=== PATIENT | female | born 1930 | race Caucasian/White ===

== ENCOUNTER 2018-04-19 16:29 | Inpatient (IN) ==
[2018-04-19] MEDS ORDERED: 0.9 % Sodium Chloride 1,000 ML IVC ONE (16:35)
[2018-04-19] MEDS ORDERED: Isovue-370 500 ML INFUS..BTL IV ONE (16:38)
[2018-04-19 17:02] LABS: Hematocrit 37.6 % (35.3-44.9); Hemoglobin 12.2 g/dL (11.5-15.4); Mean Corpuscular HGB Conc 32.4 g/dL (31.6-35.5); Mean Corpuscular Hemoglobin 29.6 pg (28.0-33.3); Mean Corpuscular Volume 91.3 fL (83.0-100.0); Mean Platelet Volume 10.3 fL (9.4-12.4); Platelet Count 142 K/mcL (140-400); Red Blood Count 4.12 M/mcL (3.82-4.97); Red Cell Distribution Width 14.5 % (11.5-14.5)
[2018-04-19 17:09] LABS: INR 1.1; Prothrombin Time 12.8 Seconds (9.4-12.1)
[2018-04-19 17:11] LABS: Activated Partial Thrombo Time 30.3 Seconds (26.0-36.0)
--- NOTE | 2018-04-19 17:22 | Emergency Department Note ---
Addendum entered and electronically signed by Farnaz Redd DO 04/27/18 20:51: Original Note: Disposition Clinical Impression: Dissection of aorta, thoracic Disposition: Still a Patient Condition: Serious Referrals: Leny Vivar CNP [Primary Care Provider] - Forms: ED Satisfaction Letter General Adult HPI - General Chief complaint: ED Altered Mental Status Time Seen by Provider: 04/19/18 16:35 Source: EMS Limitations: no limitations Nursing Notes Reviewed: Yes Vital Signs Reviewed: Yes - History of Present Illness HPI Narrative: Female patient brought in by EMS for being found unresponsive in the floor. They report that there is an unknown downtime. The daughter does come to bedside and is reporting that the last time she saw her well was yesterday. She did not speak with her this morning however when she got home she her groaning she was gone downstairs on a hard floor. She does have a significant history of being hard of hearing. However the daughter states that her hearing it was in and she was mumbling. She was not responding is normal to the daughter. Patient does not have a history of stroke. She does have a history of a aortic aneurysm. The daughter is unaware of his near her heart or in her abdomen. She does have a history of open-heart surgery. Does have a history of [place]. States that she has been having decreased by mouth intake recently. Patient's glucose was normal for EMS. She was cool to the touch and cyanotic about the face, so she was placed on a nonrebreather. She is cyanotic while coming into the trauma bay. We placed her on the nonrebreather again and started rewarming. We cannot get it initial rectal temperature. Pain Scale: 0 - Related Data Home Medications Medication Instructions Recorded Confirmed Aspirin 05/10/16 Crestor 05/10/16 Furosemide 05/10/16 Levothyroxine Sodium 05/10/16 05/10/16 Metoprolol Tartrate 05/10/16 Oxycodone-Acetaminophn 5-325/5 05/10/16 Plavix 05/10/16 Potassium Chloride 05/10/16 Zostavax 05/10/16 Previous Rx's Medication Instructions Recorded Acetaminophen w/Cod 300-30 mg 1 each PO QID #6 tablet 05/10/16 [Tylenol w/Codeine #3] cephALEXin [Keflex] 500 mg PO TID #30 capsule 05/10/16 Allergies Allergy/AdvReac Type Severity Reaction Status Date / Time No Known Allergies Allergy Verified 05/10/16 16:22 Limitations: ROS unobtainable due to patients medical condition Past Medical History - Past Medical History Source: obtained from family Medical history: Reports: aortic aneurysm, CHF, hyperlipidemia, hypertension, myocardial infarction, thyroid disease, other Psychiatric history: Reports: no psych history MANAGER FLORAL history: Reports: no MANAGER FLORAL history - Social History Smoking Status: Never smoker Smokeless Tobacco Status: No Alcohol use: Reports: none Drug use: Reports: none Physical Exam - General Limitations: no limitations General appearance: obtunded, in distress - Head Head exam: normocephalic, other (Patient cyanotic about the lips. Does have ecchymosis to the left face.) - Eye Eye exam: Present: normal appearance, PERRL, EOMI. Absent: scleral icterus - ENT ENT exam: mucous membranes moist, TM's normal bilaterally - Neck Neck exam: Present: trachea midline. Absent: tenderness, lymphadenopathy - Chest Chest inspection: Present: normal inspection, symmetric chest wall rise, other (Old midline scar.) - Respiratory Respiratory exam: Present: other (Patient cyanotic about the lips. Patient has decreased lung sounds throughout.) - Cardiovascular Cardiovascular exam: Present: regular rate, normal rhythm, normal heart sounds - Abdominal Exam Abdominal exam: Present: soft, Non-Tender. Absent: distention, rigidity, organomegaly - Extremities Exam Extremities exam: Present: other (Patient moving upper extremities.). Absent: pedal edema - Back Exam Back exam: Present: normal inspection - Psychiatric Psychiatric exam: Present: anxious - Skin Skin exam: Present: cyanosis, pallor, other (cool to the touch) Course Course Narrative: Initial presentation in the trauma bay the patient was cyanotic about her face and lips. We did replace the nonrebreather on the patient. This increased her perfusion and she became pink about her face at that time. She is cold to the touch. We cannot get a rectal temperature initially. Pulse ox will not pear picker either due to patient's habitual. Patient initially would not speak however she ended up sitting up and was notable stating her head hurt and her neck her. Pupils were equal and reactive. Lung sounds were diminished however no focal consolidation was noted. Abdomen was soft nonrigid nondistended. I do not appreciate any step-offs or deformity*cervical spine thoracic spine or lumbar spine however there is ecchymosis to her left shoulder and left face. Pupils are equal and reactive. She is moving her upper extremities but I have not noticed moment movement from her lower extremities. Patient does not have a history of stroke however the concern is there we do not know last known well. We will get a CT of patient's head and cervical spine and chest abdomen pelvis. I did speak with the daughter who is unaware if the patient would like to be intubated if necessary she is contacting her sister at this time. Initially there was concern for possible intubation as the patient was not mentating appropriately and was cyanotic however she did begin to sit up and protect her airway better. Patient initially had vomitus about the blanket beside her. - Consultations Consultation #1: Dr Jones accepted Pt. He was made aware that the Pt is now DNR status. Time: 19:34 Vital Signs Temperature 0 F L 04/19/18 16:33 Pulse Rate 74 04/19/18 16:33 Respiratory Rate 18 04/19/18 16:33 Blood Pressure 95/78 04/19/18 16:33 O2 Sat by Pulse Oximetry 95 04/19/18 16:33 Temperature 90.5 F L 04/19/18 17:37 Pulse Rate 66 04/19/18 18:15 Respiratory Rate 16 04/19/18 18:15 Blood Pressure 77/59 04/19/18 18:15 O2 Sat by Pulse Oximetry 93 04/19/18 18:15 Oxygen Delivery Oxygen Delivery Simple Mask Medical Decision Making - Lab Data Result diagrams: 04/19/18 16:45 Lab Results 04/19/18 04/19/18 04/19/18 Range/Units 16:35 16:45 16:45 WBC 13.9 H (4.3-11.1) K/mcL RBC 4.12 (3.82-4.97) M/mcL Hgb 12.2 (11.5-15.4) g/dL Hct 37.6 (35.3-44.9) % MCV 91.3 (83.0-100.0) fL MCH 29.6 (28.0-33.3) pg MCHC 32.4 (31.6-35.5) g/dL RDW 14.5 (11.5-14.5) % Plt Count 142 (140-400) K/mcL MPV 10.3 (9.4-12.4) fL PT 12.8 H (9.4-12.1) Seconds INR 1.1 APTT 30.3 (26.0-36.0) Seconds Sample Site ABG pH (7.32-7.45) pH Units ABG pCO2 (35-45) mmHg ABG pO2 (85-104) mmHg ABG HCO3 (21-27) mEq/L ABG Total CO2 (20-26) mEq/L ABG O2 Saturation (95-98) % ABG Base Excess (-2 to 3) mEq/L Sushant Test O2 Delivery Device Inspired O2 (1-15=lpm [id number]=%) POC Glucose 128 H (70-99) mg/dL Troponin I (< 0.04) ng/mL B-Natriuretic Peptide (Less than 100) pg/mL Specimen Rejected 04/19/18 04/19/18 04/19/18 Range/Units 16:45 16:45 17:29 WBC (4.3-11.1) K/mcL RBC (3.82-4.97) M/mcL Hgb (11.5-15.4) g/dL Hct (35.3-44.9) % MCV (83.0-100.0) fL MCH (28.0-33.3) pg MCHC (31.6-35.5) g/dL RDW (11.5-14.5) % Plt Count (140-400) K/mcL MPV (9.4-12.4) fL PT (9.4-12.1) Seconds INR APTT (26.0-36.0) Seconds Sample Site R Radial ABG pH 7.30 L (7.32-7.45) pH Units ABG pCO2 39 (35-45) mmHg ABG pO2 93 (85-104) mmHg ABG HCO3 19 L (21-27) mEq/L ABG Total CO2 20 (20-26) mEq/L ABG O2 Saturation 96 (95-98) % ABG Base Excess -7 L (-2 to 3) mEq/L Sushant Test Positive O2 Delivery Device Oxy Mask Inspired O2 50.0 (1-15=lpm [id number]=%) POC Glucose (70-99) mg/dL Troponin I 0.11 H* (< 0.04) ng/mL B-Natriuretic Peptide 319 H (Less than 100) pg/mL Specimen Rejected 04/19/18 Range/Units 18:27 WBC (4.3-11.1) K/mcL RBC (3.82-4.97) M/mcL Hgb (11.5-15.4) g/dL Hct (35.3-44.9) % MCV (83.0-100.0) fL MCH (28.0-33.3) pg MCHC (31.6-35.5) g/dL RDW (11.5-14.5) % Plt Count (140-400) K/mcL MPV (9.4-12.4) fL PT (9.4-12.1) Seconds INR APTT (26.0-36.0) Seconds Sample Site ABG pH (7.32-7.45) pH Units ABG pCO2 (35-45) mmHg ABG pO2 (85-104) mmHg ABG HCO3 (21-27) mEq/L ABG Total CO2 (20-26) mEq/L ABG O2 Saturation (95-98) % ABG Base Excess (-2 to 3) mEq/L Sushant Test O2 Delivery Device Inspired O2 (1-15=lpm [id number]=%) POC Glucose (70-99) mg/dL Troponin I (< 0.04) ng/mL B-Natriuretic Peptide (Less than 100) pg/mL Specimen Rejected Miscellaneous
--- NOTE | 2018-04-19 17:45 | Emergency Department Note ---
Disposition Clinical Impression: Dissection of aorta, thoracic Disposition: Still a Patient Condition: Serious Referrals: Leny Vivar CNP [Primary Care Provider] - Forms: ED Satisfaction Letter Altered Mental Status HPI - General Chief Complaint: ED Altered Mental Status Time Seen by Provider: 04/19/18 16:35 Source: EMS Limitations: no limitations - Related Data Home Medications Medication Instructions Recorded Confirmed Aspirin 05/10/16 Crestor 05/10/16 Furosemide 05/10/16 Levothyroxine Sodium 05/10/16 05/10/16 Metoprolol Tartrate 05/10/16 Oxycodone-Acetaminophn 5-325/5 05/10/16 Plavix 05/10/16 Potassium Chloride 05/10/16 Zostavax 05/10/16 Previous Rx's Medication Instructions Recorded Acetaminophen w/Cod 300-30 mg 1 each PO QID #6 tablet 05/10/16 [Tylenol w/Codeine #3] cephALEXin [Keflex] 500 mg PO TID #30 capsule 05/10/16 Allergies Allergy/AdvReac Type Severity Reaction Status Date / Time No Known Allergies Allergy Verified 05/10/16 16:22 Past Medical History - Past Medical History Medical history: Reports: aortic aneurysm, CHF, hyperlipidemia, hypertension, myocardial infarction, thyroid disease, other Psychiatric history: Reports: no psych history RIVER RAT history: Reports: no RIVER RAT history - Social History Smoking Status: Never smoker Smokeless Tobacco Status: No Alcohol use: Reports: none Drug use: Reports: none Physical Exam - General Limitations: no limitations General appearance: alert, in distress Course Vital Signs Temperature 0 F L 04/19/18 16:33 Pulse Rate 74 04/19/18 16:33 Respiratory Rate 18 04/19/18 16:33 Blood Pressure 95/78 04/19/18 16:33 O2 Sat by Pulse Oximetry 95 04/19/18 16:33 Temperature 90.5 F L 04/19/18 17:37 Pulse Rate 66 04/19/18 18:15 Respiratory Rate 16 04/19/18 18:15 Blood Pressure 77/59 04/19/18 18:15 O2 Sat by Pulse Oximetry 93 04/19/18 18:15 Oxygen Delivery Oxygen Delivery Simple Mask Altered Mental Status - Lab Data Result diagrams: 04/19/18 16:45 Lab Results 04/19/18 04/19/18 04/19/18 Range/Units 16:35 16:45 16:45 WBC 13.9 H (4.3-11.1) K/mcL RBC 4.12 (3.82-4.97) M/mcL Hgb 12.2 (11.5-15.4) g/dL Hct 37.6 (35.3-44.9) % MCV 91.3 (83.0-100.0) fL MCH 29.6 (28.0-33.3) pg MCHC 32.4 (31.6-35.5) g/dL RDW 14.5 (11.5-14.5) % Plt Count 142 (140-400) K/mcL MPV 10.3 (9.4-12.4) fL PT 12.8 H (9.4-12.1) Seconds INR 1.1 APTT 30.3 (26.0-36.0) Seconds Sample Site ABG pH (7.32-7.45) pH Units ABG pCO2 (35-45) mmHg ABG pO2 (85-104) mmHg ABG HCO3 (21-27) mEq/L ABG Total CO2 (20-26) mEq/L ABG O2 Saturation (95-98) % ABG Base Excess (-2 to 3) mEq/L Sushant Test O2 Delivery Device Inspired O2 (1-15=lpm [id number]=%) POC Glucose 128 H (70-99) mg/dL Troponin I (< 0.04) ng/mL B-Natriuretic Peptide (Less than 100) pg/mL Specimen Rejected 04/19/18 04/19/18 04/19/18 Range/Units 16:45 16:45 17:29 WBC (4.3-11.1) K/mcL RBC (3.82-4.97) M/mcL Hgb (11.5-15.4) g/dL Hct (35.3-44.9) % MCV (83.0-100.0) fL MCH (28.0-33.3) pg MCHC (31.6-35.5) g/dL RDW (11.5-14.5) % Plt Count (140-400) K/mcL MPV (9.4-12.4) fL PT (9.4-12.1) Seconds INR APTT (26.0-36.0) Seconds Sample Site R Radial ABG pH 7.30 L (7.32-7.45) pH Units ABG pCO2 39 (35-45) mmHg ABG pO2 93 (85-104) mmHg ABG HCO3 19 L (21-27) mEq/L ABG Total CO2 20 (20-26) mEq/L ABG O2 Saturation 96 (95-98) % ABG Base Excess -7 L (-2 to 3) mEq/L Sushant Test Positive O2 Delivery Device Oxy Mask Inspired O2 50.0 (1-15=lpm [id number]=%) POC Glucose (70-99) mg/dL Troponin I 0.11 H* (< 0.04) ng/mL B-Natriuretic Peptide 319 H (Less than 100) pg/mL Specimen Rejected 04/19/18 Range/Units 18:27 WBC (4.3-11.1) K/mcL RBC (3.82-4.97) M/mcL Hgb (11.5-15.4) g/dL Hct (35.3-44.9) % MCV (83.0-100.0) fL MCH (28.0-33.3) pg MCHC (31.6-35.5) g/dL RDW (11.5-14.5) % Plt Count (140-400) K/mcL MPV (9.4-12.4) fL PT (9.4-12.1) Seconds INR APTT (26.0-36.0) Seconds Sample Site ABG pH (7.32-7.45) pH Units ABG pCO2 (35-45) mmHg ABG pO2 (85-104) mmHg ABG HCO3 (21-27) mEq/L ABG Total CO2 (20-26) mEq/L ABG O2 Saturation (95-98) % ABG Base Excess (-2 to 3) mEq/L Sushant Test O2 Delivery Device Inspired O2 (1-15=lpm [id number]=%) POC Glucose (70-99) mg/dL Troponin I (< 0.04) ng/mL B-Natriuretic Peptide (Less than 100) pg/mL Specimen Rejected Miscellaneous TPA Checklist - LKW: 3-4.5 hrs Add. Warnings/Precautions Patient/family understanding: The patient/family members have been counseled and understood the risk, benefit, and alternatives of treatment. Attestation Statement - Attestation Attestation: Resident Attestation: I examined this patient and my medical decision making was reviewed with the Resident Physician. I agree with the documented findings, disposition and treatment plan as described except to the extent set forth below. We independently had [id number] contact with the patient. Please see resident note for further details and disposition. Patient brought in today by EMS with decreased responsiveness. She was found by her family on the floor. She was with family in the basement. As known well was last night. The patient had concerns for hypoxia with blue discoloration to the face. She was placed on a nonrebreather with clinical improvement. Pulse ox was hard to obtain. She has dried vomitus to the bowels concern for coffee-ground emesis. Patient is able to state her name but no other significant medication. On exam the patient is regular rate and rhythm with lungs clear to auscultation bilaterally and abdomen is soft nontender to palpation with no significant evidence of trauma. Workup initiated including emergent CT of the head and cervical spine. CTA of the chest abdomen and pelvis has been ordered secondary to a history of unknown aneurysm. Patient is core temperature was found to be 90 degrees. The patient was placed on an air hunger and sent to CAT scan. Upon return the patient's symptoms have improved. Her mental status has significantly improved. The CAT scans were read by radiology and the results were relayed. Patient has a remote infarct not likely contributing to current symptoms. She does have an ascending aortic dissection. The patient's family is at bedside and states that they know she does not want any open heart surgery. I did place a call to [facility] and talked with cardiothoracic. There is no option other than intrathoracic surgery. I did discuss this with family and they request no further interventions. At this time the patient has been made DNR CC and is palliative. Our goal at this point is comfort care. Patient has been down for unknown amount of time. It is unknown exactly how long the patient will survive. The patient was undergo admission to the hospitalist service for palliative care.
[2018-04-19 17:51] LABS: ABG Base Excess -7 mEq/L (-2 to 3); ABG HCO3 19 mEq/L (21-27); ABG Oxygen Saturation 96 % (95-98); ABG PCO2 39 mmHg (35-45); ABG PO2 93 mmHg (85-104); ABG TCO2 20 mEq/L (20-26)
[2018-04-19] MEDS ORDERED: Esmolol 2.5 GM/250 ML MLS IVC SCH (17:52)
[2018-04-19] MEDS ORDERED: *HR* FentaNYL (PF) 100 MCG/2 ML VIAL IVP ONE (17:53)
[2018-04-19] MEDS ORDERED: Ondansetron 4 MG/2 ML VIAL IVP ONE (19:16)
[2018-04-19] MEDS ORDERED: Atropine Sulfate 1% 40 DROP/2 ML BOTTLE SL PRN (19:16)
[2018-04-19] MEDS ORDERED: *HR* FentaNYL PATCH 25 MCG PATCH TD SCH (20:00)
[2018-04-19] MEDS ORDERED: *HR* FentaNYL (PF) 100 MCG/2 ML VIAL ONE (20:03)
[2018-04-19] MEDS: *HR* FentaNYL (PF) 100 MCG/2 ML VIAL IVP PRN ×2 (20:05→21:26)
[2018-04-19] MEDS: 0.9 % Sodium Chloride 1,000 ML IVC SCH (20:10)
[2018-04-19] MEDS ORDERED: Naloxone 0.4 MG/ML INJ IVP PRN (20:23)
[2018-04-19] MEDS ORDERED: OXYCODONE Oral CONC 10 MG/0.5 ML ORAL.SYG SL PRN ×2 (20:23)
[2018-04-19] MEDS ORDERED: ALPRAZolam 0.25 MG TABLET PO PRN (20:31)
[2018-04-19] MEDS ORDERED: Ondansetron 4 MG/2 ML VIAL IVP PRN (20:31)
--- NOTE | 2018-04-19 20:36 | Internal Med History&Physical ---
Date of Encounter: 04/19/18 Time of Encounter: 20:36 Internal Medicine - H&P: HPI Chief complaint: AMS History of present illness: Ms. Maya is a 87 year old female of Stroke, Aortic Aneurysm who presents after patient was found down on the floor by daughter. She was brought in today by EMS with decreased responsiveness. She was last seen in her usual state of health last night. Her daughter found her on the floor altered and mumbling. During the initial assessment in the ED patient was noted to be cyanotic with regard to her face and lips, hypothermic with a core temperature of 90 degrees. She was placed on a nonrebreather with clinical improvement. Imaging was performed after which her mental status has significantly improved. CTA revealed a type A ascending aortic dissection with moderate hemopericardium. After discussion with the patient and the family decision to make the patient palliative with no further intervention was reached. At this time the patient has been made DNR CC and is palliative. Past Med Surg Social Fam HX - Past Medical History Medical history: aortic aneurysm, CHF, hyperlipidemia, hypertension, myocardial infarction, thyroid disease, other Additional medical history: broken right hip and lower back Psychiatric history: no psych history - Social History Smoking Status: Never smoker Smokeless Tobacco Status: No Alcohol use: none Drug use: none Internal Medicine - H&P: Meds Aspirin [Adult Aspirin] 81 mg PO DAILY 04/20/18 [History] Clopidogrel [Plavix] 75 mg PO DAILY 04/20/18 [History] Levothyroxine [Synthroid] 75 mcg PO DAILY 04/20/18 [History] Potassium Chloride [Klor-Con 10] 10 meq PO DAILY 04/20/18 [History] Rosuvastatin [Crestor] 40 mg PO HS 04/20/18 [History] Allergy/AdvReac Type Severity Reaction Status Date / Time No Known Allergies Allergy Verified 05/10/16 16:22 All Systems PM: A 10-system review of systems was performed and is negative for pertinent findings except as documented above in the HPI. - Constitutional Constitutional: no chills, no fever(s), no night sweats - EENT Eyes: no change in vision, no discharge, no pain, no photophobia Ears: no ear discharge, no ear pain, no tinnitus Nose, mouth and throat: no dysphagia, no nasal discharge, no neck pain, no sore throat - Cardiovascular Cardiovascular ROS IM: no chest pain, no diaphoresis, no dyspnea, no lightheadedness, no palpitations, no syncope - Respiratory Respiratory: no cough, no dyspnea, no wheezing, no excessive phlegm production - Gastrointestinal Gastrointestinal: no abdominal pain, no diarrhea, no hematemesis, no hematochezia, no melena, no nausea, no vomiting - Genitourinary Genitourinary: no change in urinary stream, no dysuria, no flank pain, no hematuria - Musculoskeletal Musculoskeletal ROS IM: no numbness, no tingling - Integumentary Integumentary IM: no rash, no unusual bruising - Neurological Neurological ROS: no confusion, no convulsions, no focal weakness, no numbness, no tingling, no tremor(s) - Hematologic/Lymphatic Hematologic/Lymphatic: no easy bruising - Constitutional Vitals: Temp Pulse Resp BP Pulse Ox 90.5 F L 66 16 77/59 93 04/19/18 17:37 04/19/18 18:15 04/19/18 18:15 04/19/18 18:15 04/19/18 18:15 Exam: General: Alert and oriented 2 Skin:Normal color, no rash, no lesions. HEENT:EOM, pupils equal, round and reactive. Cardiovascular:Normal S1 & S2, no rubs, murmurs or gallops. No JVD. Pulse regular. Lungs:Normal breath sounds, no wheezes or crackles. Abdomen:Soft, non-tender, no rigidity. Extremities:No deformity, no edema or tenderness, no joint swelling or clubbing. Neurological:Normal cognition and motor skills. Pulses:Carotid and radial pulses normal +2. Rest of the physical exam is non contributory Internal Med - H&P Results - Labs CBC & Chem 7: 04/19/18 16:45 Labs: Short CBC 04/19/18 Range/Units 16:45 WBC 13.9 H (4.3-11.1) K/mcL Hgb 12.2 (11.5-15.4) g/dL Hct 37.6 (35.3-44.9) % Plt Count 142 (140-400) K/mcL Cardiac Enzymes 04/19/18 Range/Units 16:45 Troponin I 0.11 H* (< 0.04) ng/mL - ABG Interpretation ABG results: 04/19/18 17:29 ABG pH 7.30 L ABG pCO2 39 ABG pO2 93 ABG HCO3 19 L ABG Total CO2 20 ABG O2 Saturation 96 ABG Base Excess -7 L - Impressions ITS Impressions Cervical Spine CT 04/19/18 16:36 IMPRESSION: No acute abnormality of the cervical spine. D/ / 04/19/2018 17:45:49 Angelito Solano MD / amrgi Interpreting Provider: Angelito Solano MD Chest X-Ray 04/19/18 16:36 IMPRESSION: 1. Question left suprahilar opacity which may reflect mild pneumonia in the proper clinical setting 2. Cardiomegaly and tortuous thoracic aorta. Consider further assessment with CTA exam as clinically indicated. D/ / Fab Mckeon MD / Fab Mckeon MD Interpreting Provider: Fab Mckeon MD Head CT 04/19/18 16:36 IMPRESSION: 1. No acute intracranial abnormality. 2. Diffuse cerebral atrophy with chronic small vessel ischemic disease. 3. Remote left cerebellar hemisphere infarct. D/ / Mando Carranza MD / Mando Carranza MD Interpreting Provider: Mando Carranza MD Chest CTA 04/19/18 16:38 IMPRESSION: Type A thoracic aortic dissection with extension to the aortic root with moderate size hemopericardium. A small defect is seen along the ascending aortic dissection flap (see annotated images). The dissection flap extends to the aortic arch where it becomes completely thrombosed. Aortic arch branches are patent with possible tiny dissection flap within the left subclavian artery. [place] coronary arteries and bypass grafts appear to arise from the true lumen. Aneurysmal ascending aorta also severely compresses the superior vena cava and right branch main pulmonary artery. Ectatic thoracoabdominal aorta with patent visceral branches. Extrinsic compression of the celiac artery may indicate underlying superior mesenteric artery compression. Critical results were called by Dr. Ubaldo Rawls to Praveen Parks on 04/19/2018 at 5:48 p.m.. D/ / 04/19/2018 18:05:42 Ubaldo Rawls / margi Interpreting Provider: Ubaldo Rawls Pelvis X-Ray 04/19/18 16:38 IMPRESSION: Acute osseous abnormality the bony pelvis or left hip. Intact partially imaged right hip prosthesis. D/ / Ubaldo Rawls / Ubaldo Rawls Interpreting Provider: Ubaldo Rawls - Assessment and plan (1) Dissection of aorta, thoracic Status: Acute Assessment and plan: CTA showsa thoracic aortic dissection with extension to the aortic root with moderate size hemopericardium. Aortic arch branches are patent with possible tiny dissection flap within the left subclavian artery. Long discussion with family. Patient and family do not want any further intervention. Patient made palliative comfort care measures only. Palliative care consult in the morning. (2) Altered mental state Status: Acute Assessment and plan: Altered mental status in the setting of ascending aortic dissection. Mental status now improved. Patient made palliative care with no further intervention at this time. Comfort measures only. Qualifiers: Altered mental status type: disorientation Qualified Code(s): R41.0 - Disorientation, unspecified (3) Cyanosis Status: Acute Assessment and plan: Cyanosis in the setting of aortic dissection. Continue supplemental oxygen at this time. (4) Hypotension Status: Acute Assessment and plan: Family does not wish for any fluid supportive at this time. We will monitor. Qualifiers: Hypotension type: unspecified hypotension type Qualified Code(s): I95.9 - Hypotension, unspecified - Time Spent With Patient Total time spent is greater than 50% in coordination of care (as documented) at patient's floor/unit and/or counseling patient:
--- NOTE | 2018-04-19 21:12 | Emergency Department Note ---
Disposition Clinical Impression: Dissection of aorta, thoracic Disposition: Admitted As Inpatient Condition: Critical Referrals: Leny Vivar CNP [Primary Care Provider] - Forms: ED Satisfaction Letter Altered Mental Status HPI - General Chief Complaint: ED Altered Mental Status Time Seen by Provider: 04/19/18 16:35 Source: EMS Limitations: no limitations - Related Data Home Medications Medication Instructions Recorded Confirmed Aspirin 05/10/16 Crestor 05/10/16 Furosemide 05/10/16 Levothyroxine Sodium 05/10/16 05/10/16 Metoprolol Tartrate 05/10/16 Oxycodone-Acetaminophn 5-325/5 05/10/16 Plavix 05/10/16 Potassium Chloride 05/10/16 Zostavax 05/10/16 Previous Rx's Medication Instructions Recorded Acetaminophen w/Cod 300-30 mg 1 each PO QID #6 tablet 05/10/16 [Tylenol w/Codeine #3] cephALEXin [Keflex] 500 mg PO TID #30 capsule 05/10/16 Allergies Allergy/AdvReac Type Severity Reaction Status Date / Time No Known Allergies Allergy Verified 05/10/16 16:22 Past Medical History - Past Medical History Medical history: Reports: aortic aneurysm, CHF, hyperlipidemia, hypertension, myocardial infarction, thyroid disease, other Psychiatric history: Reports: no psych history 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: 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 history - Social History Smoking Status: Never smoker Smokeless Tobacco Status: No Alcohol use: Reports: none Drug use: Reports: none Physical Exam - General Limitations: no limitations General appearance: obtunded, in distress Course Vital Signs Temperature 0 F L 04/19/18 16:33 Pulse Rate 74 04/19/18 16:33 Respiratory Rate 18 04/19/18 16:33 Blood Pressure 95/78 04/19/18 16:33 O2 Sat by Pulse Oximetry 95 04/19/18 16:33 Temperature 90.5 F L 04/19/18 17:37 Pulse Rate 66 04/19/18 18:15 Respiratory Rate 16 04/19/18 18:15 Blood Pressure 77/59 04/19/18 18:15 O2 Sat by Pulse Oximetry 93 04/19/18 18:15 Oxygen Delivery Oxygen Delivery Simple Mask Altered Mental Status - MDM Narrative Medical decision making narrative: I, Kyle Early, examined this patient and my medical decision-making was reviewed with the CLINICAL PRACTITIONER/PA/Advanced Practice Nurse/Resident Physician. I agree with the documented findings, disposition and treatment plan as described except to the extent set forth below. 87-year-old female received in sign out at 7 PM pending admission to the hospital. Patient was diagnosed with ascending thoracic aortic aneurysm. She is found unresponsive after unknown downtime. Previous physician had called [facility] cardiothoracic surgery. He recommended patient required cardiothoracic surgery for treatment however patient refuses additional surgery and now wishes to be DNR/DNI and will be evaluated for palliative care. Patient admitted to the hospitalist without additional issues. - Lab Data Result diagrams: 04/19/18 16:45 Lab Results 04/19/18 04/19/18 04/19/18 Range/Units 16:35 16:45 16:45 WBC 13.9 H (4.3-11.1) K/mcL RBC 4.12 (3.82-4.97) M/mcL Hgb 12.2 (11.5-15.4) g/dL Hct 37.6 (35.3-44.9) % MCV 91.3 (83.0-100.0) fL MCH 29.6 (28.0-33.3) pg MCHC 32.4 (31.6-35.5) g/dL RDW 14.5 (11.5-14.5) % Plt Count 142 (140-400) K/mcL MPV 10.3 (9.4-12.4) fL PT 12.8 H (9.4-12.1) Seconds INR 1.1 APTT 30.3 (26.0-36.0) Seconds Sample Site ABG pH (7.32-7.45) pH Units ABG pCO2 (35-45) mmHg ABG pO2 (85-104) mmHg ABG HCO3 (21-27) mEq/L ABG Total CO2 (20-26) mEq/L ABG O2 Saturation (95-98) % ABG Base Excess (-2 to 3) mEq/L Sushant Test O2 Delivery Device Inspired O2 (1-15=lpm [id number]=%) POC Glucose 128 H (70-99) mg/dL Troponin I (< 0.04) ng/mL B-Natriuretic Peptide (Less than 100) pg/mL Specimen Rejected 04/19/18 04/19/1804/19/18 Range/Units 16:45 16:45 17:29 WBC (4.3-11.1) K/mcL RBC (3.82-4.97) M/mcL Hgb (11.5-15.4) g/dL Hct (35.3-44.9) % MCV (83.0-100.0) fL MCH (28.0-33.3) pg MCHC (31.6-35.5) g/dL RDW (11.5-14.5) % Plt Count (140-400) K/mcL MPV (9.4-12.4) fL PT (9.4-12.1) Seconds INR APTT (26.0-36.0) Seconds Sample Site R Radial ABG pH 7.30 L (7.32-7.45) pH Units ABG pCO2 39 (35-45) mmHg ABG pO2 93 (85-104) mmHg ABG HCO3 19 L (21-27) mEq/L ABG Total CO2 20 (20-26) mEq/L ABG O2 Saturation 96 (95-98) % ABG Base Excess -7 L (-2 to 3) mEq/L Sushant Test Positive O2 Delivery Device Oxy Mask Inspired O2 50.0 (1-15=lpm [id number]=%) POC Glucose (70-99) mg/dL Troponin I 0.11 H* (< 0.04) ng/mL B-Natriuretic Peptide 319 H (Less than 100) pg/mL Specimen Rejected 04/19/18 Range/Units 18:27 WBC (4.3-11.1) K/mcL RBC (3.82-4.97) M/mcL Hgb (11.5-15.4) g/dL Hct (35.3-44.9) % MCV (83.0-100.0) fL MCH (28.0-33.3) pg MCHC (31.6-35.5) g/dL RDW (11.5-14.5) % Plt Count (140-400) K/mcL MPV (9.4-12.4) fL PT (9.4-12.1) Seconds INR APTT (26.0-36.0) Seconds Sample Site ABG pH (7.32-7.45) pH Units ABG pCO2 (35-45) mmHg ABG pO2 (85-104) mmHg ABG HCO3 (21-27) mEq/L ABG Total CO2 (20-26) mEq/L ABG O2 Saturation (95-98) % ABG Base Excess (-2 to 3) mEq/L Sushant Test O2 Delivery Device Inspired O2 (1-15=lpm [id number]=%) POC Glucose (70-99) mg/dL Troponin I (< 0.04) ng/mL B-Natriuretic Peptide (Less than 100) pg/mL Specimen Rejected Miscellaneous TPA Checklist - LKW: 3-4.5 hrs Add. Warnings/Precautions Patient/family understanding: The patient/family members have been counseled and understood the risk, benefit, and alternatives of treatment.
--- NOTE | 2018-04-19 23:07 | Event Note ---
Date of Encounter: 04/19/18 Time of Encounter: 22:14 Alerted by pts. nurse Patty RN that the pts. current CODE STATUS was DNRCCA-DNI and family was wanting to discuss changing her status and what was involved. I went to speak with the family. Pt. was resting in bed. Patient was admitted today after patient was found on the floor by her daughter with decreased responsiveness. Concern for hypoxia due to blue discoloration of the face and SPO2 was difficult to obtain. Patient was also hypothermic with temperature of 90 degrees. Patient was placed on radiant warming and temperature at 17:37 was 90.5F. Temp showed some improvement, but pts. temp still <96.0F. Other concerns: CT of the chest today showed type A thoracic aortic dissection with extension to the aortic root with moderate sized hemopericardium. A small defect is seen along the ascending aortic dissection flap. This dissection flap extends to the aortic arch where it becomes completely thrombosed. Aortic arch branches are patent with possible tiny dissection flap within the left subclavian artery. [place] coronary arteries and bypass grafts appear to arise from the true lumen. Aneurysmal ascending aorta also severely compresses superior vena cava and right branch main pulmonary artery. Pt. has also been hypotensive and complains of abdominal pain extending to rectum. In discussing the pts. prognosis with the family, the family stated that the pt. did not want surgical intervention was was refusing the warming device. I explained the difference between DNRCCA-DNI and DNRCC to the family and daughter (POA). Pts. daughter (POA) stated that she wanted to change her mother's CODE STATUS to DNRCC. A Palliative Care consult was already placed. I explained that the pt. was hypotensive and she was experiencing pain. I explained that the ordered Fentanyl would likely drop her BP too low. I informed the family and nurses that I would have a conversation with Pharmacy regarding pain management. I spoke with Bridgette, Pharmacist regarding my concerns for further hypotension but how the pt. required pain control in her condition. Pharmacy recommendation was to discontinue the Fentanyl order and start with the 5 mg SL oxycodone and monitor the pts. BP closely and consider changing to SL morphine if the oxycodone was not effective. Discussed the plan w/pts. nurse Brambila and instructed her to monitor BP closely following pain medication administration. Reaffirmed with pts. daughter (POAshley) that her wishes were to change her mother's CODE STATUS to DNRCC to which she said "Yes" and expressed understanding regarding the change. I told the family and nurse to page me if they had any further concerns or questions. Pts. CODE STATUS changed to DNRCC at 22:50. Pt. to be monitored closely overnight.
[2018-04-19] MEDS ORDERED: MORPHINE SUL Oral CONC 10 MG/0.5 ML ORAL.SYG PO PRN (23:23)
[2018-04-20] MEDS ORDERED: *HR* Promethazine 25 MG/ML VIAL IVP PRN (00:10)
[2018-04-20] MEDS: 0.9 % Sodium Chloride 1,000 ML IVC SCH ×2 (02:38→12:38)
[2018-04-20] MEDS ORDERED: *HR* Morphine 2 MG/ML SYRINGE IVP PRN (11:48)
[2018-04-20] MEDS ORDERED: *HR* FentaNYL PATCH 12 MCG PATCH TD SCH (12:00)
[2018-04-20 12:05] VITALS: BP 80/51
--- NOTE | 2018-04-20 12:15 | Palliative - Consult Note ---
Date of Encounter: 04/20/18 Time of Encounter: 10:30 - Assessment and Plan (1) Chest pain Current Visit: Yes Status: Acute Assessment and plan: Patient having some chest pain. Ordered Fentanyl Patch and Oxycodone PRN. Ordered Morphine IVP for break through severe chest pain. Qualifiers: Chest pain type: chest pain due to myocardial ischemia Ischemic chest pain type: unspecified angina pectoris type Qualified Code(s): I25.9 - Chronic ischemic heart disease, unspecified (2) Abdominal pain Current Visit: Yes Status: Acute Assessment and plan: Ordered Oxycodone and Fentanyl. Keep phenergan and Zofran for nausea. Qualifiers: Abdominal location: generalized Qualified Code(s): R10.84 - Generalized abdominal pain (3) Anxiety Current Visit: Yes Status: Acute Assessment and plan: Changed Xanax to Ativan SL PRN. (4) Dissection of aorta, thoracic Current Visit: Yes Status: Acute (5) Hypotension Current Visit: Yes Status: Acute Assessment and plan: Discontinued IVF. Qualifiers: Hypotension type: unspecified hypotension type Qualified Code(s): I95.9 - Hypotension, unspecified (6) Goals of care, counseling/discussion Current Visit: Yes Status: Acute Assessment and plan: Conducted long goals of care discussion with patient and family. Desires to admit to [facility] hospice to get pain and shortness of breath under control. If patient stabilized plan to discharge home Wednesday with [facility]. Notified Yajaira of referral. Notified Dr. Harper of need for discharge order. If patient to return home, will need bed, table, BSC, wheelchair and oxygen. Palliative-CN HPI - Data of Consult Patient: new to practice Consult date: 04/19/18 Requesting Physician: Mann Jones MD Primary Care Provider: Leny Vivar CNP - Consult Narrative Palliative Care/Comfort Measures: Palliative care Reason for consult: End of life care History of present illness: Ms. Maya is a 87 year old female Arrived to [place] [facility] on 04/19/18, for AMS via EMS. Cervical spine CT performed showing: No acute abnormality of the cervical spine. Chest x-ray showing Question left suprahilar opacity which may reflect mild pneumonia and Cardiomegaly and tortuous thoracic aorta. Head CT showing: No acute intracranial abnormality; Diffuse cerebral atrophy with chronic small vessel ischemic disease; and Remote left cerebellar hemisphere infarct. CT of chest showing: Type A thoracic aortic dissection with extension to the aortic root with moderate size hemopericardium; A small defect is seen along the ascending aortic dissection flap; The dissection flap extends to the aortic arch where it becomes completely thrombosed; Aortic arch branches are patent with possible tiny dissection flap within the left subclavian artery; Nikolai coronary arteries and bypass grafts appear to arise from the true lumen; Aneurysmal ascending aorta also severely compresses the superior vena cava and right branch main pulmonary artery; Ectatic thoracoabdominal aorta with patent visceral branches; Extrinsic compression of the celiac artery may indicate underlying superior mesenteric artery compression. Hip x-ray showing: Acute osseous abnormality the bony pelvis or left hip. Patient brought in by EMS after being found unresponsive on floor, with unknown downtime. Patient found to be mumbling, non- responsive, cyanotic, and hypoxic; initially unable to obtain temperature, hypothermic. Patient admitted with dissection of aortic thoracic. PMH: aortic aneurysm, CHF, hyperlipidemia, hypertension, myocardial infarction, thyroid disease. Per family report, only option open heart surgery; patient refuses. Patients code status changed to DNRCC and Palliative care consult for end of life care. Patient noted to be hard of hearing. Alert and oriented upon arrival for assessment. Patients children Bunny, Tracy, and Erika present at bedside. Patient able to participate in goals of care discussion. Family and patient agree that patient will not have surgery. Verbalized understanding that they may not have much time. Reports chest pain, abdominal pain, and shortness of breath present. Denies nausea and vomiting at this time. Patient has received 1 dose of Roxanol, Xofran, Oxycodone, and Phenergan. Patient has received 0 doses of Xanax, Atropine. IV fluids infusion noted. CC: Mann Jones MD - Time Spent with Patient Time: Total time spent is greater than 50% in coordination of care (as documented) at patient's floor/unit and/or counseling patient: Greater than 35 minutes Past Med Surg Social Fam HX - Past Medical History Medical history: aortic aneurysm, CHF, hyperlipidemia, hypertension, myocardial infarction, thyroid disease, other Additional medical history: broken right hip and lower back Psychiatric history: no psych history - Past Surgical History Surgical History: orthopedic, other - Social History Smoking Status: Never smoker Smokeless Tobacco Status: No Alcohol use: none Drug use: none Medications and Allergies Aspirin [Adult Aspirin] 81 mg PO DAILY 04/20/18 [History] Clopidogrel [Plavix] 75 mg PO DAILY 04/20/18 [History] Levothyroxine [Synthroid] 75 mcg PO DAILY 04/20/18 [History] Potassium Chloride [Klor-Con 10] 10 meq PO DAILY 04/20/18 [History] Rosuvastatin [Crestor] 40 mg PO HS 04/20/18 [History] Allergy/AdvReac Type Severity Reaction Status Date / Time No Known Allergies Allergy Verified 05/10/16 16:22 - Constitutional Constitutional ROS PAL: decreased appetite, anorexia, fatigue, lethargy, weight loss - Cardiovascular Cardiovascular ROS: chest pain, chest pain with activity, dyspnea on exertion, no leg edema, no pedal edema, no radiating pain - Respiratory Respiratory: dyspnea, dyspnea on exertion, pain on inspiration - Gastrointestinal Gastrointestinal: abdominal pain, no change in stool character, no constipation - Genitourinary Palliative ROS female: no difficulty voiding - Musculoskeletal Musculoskeletal ROS IM: no back pain - Integumentary ROS Integumentary: no sores, no unusual bruising, no wounds - Neurological Neurological ROS: lack of coordination - Psychiatric Psychiatric general PM: no anxiety, no confusion, no depression Palliative Care-Exam - Constitutional Vitals: Temp Pulse Resp BP Pulse Ox 98.4 F 60 16 80/51 93 04/20/18 12:04 04/20/18 12:04 04/19/18 18:15 04/20/18 12:04 04/19/18 18:15 General appearance: Present: cooperative, mild distress - Head Head Exam: Present: atraumatic, normal inspection - Eye Eye exam: Present: EOMI, normal appearance, PERRL Pupils: Present: normal accommodation, PERRL - ENT ENT exam: Present: mucous membranes moist, normal external ear exam - Expanded ENT Exam Mouth Exam: Absent: drooling - Neck Neck exam: Present: full ROM, normal inspection - Respiratory Respiratory exam: Present: CTAB. Absent: accessory muscle use, respiratory distress - Cardiovascular Cardiovascular exam: Present: +S1, +S2 - Expanded Cardiovascular Exam Peripheral pulses: 2+: Radial (L), Radial (R), Posterior Tibialis (L), Posterior Tibialis (R), Dorsalis Pedis (L) PM, Dorsalis Pedis (R) PM - GI/Abdominal Exam GI/Abdominal exam: Present: normal bowel sounds, soft. Absent: tenderness - Rectal Rectal exam: Present: deferred - Extremities Exam Extremities exam: Absent: calf tenderness, pedal edema - Neurological Exam Neurological exam: Present: alert, oriented X3, strengths equal and symetr throughout. Absent: altered - Expanded Neurological Exam Coma Scale Eye Opening: To Voice Coma Scale Motor Response: Obeys Commands Coma Scale Verbal Response: Oriented Coma Scale Total: 14 - Psychiatric Psychiatric exam: Present: normal affect, normal mood Internal Medicine - CN: Reslt - Labs CBC & Chem 7: 04/19/18 16:45 Labs: Short CBC 04/19/18 Range/Units 16:45 WBC 13.9 H (4.3-11.1) K/mcL Hgb 12.2 (11.5-15.4) g/dL Hct 37.6 (35.3-44.9) % Plt Count 142 (140-400) K/mcL Cardiac Enzymes 04/19/18 Range/Units 16:45 Troponin I 0.11 H* (< 0.04) ng/mL - ABG Interpretation ABG results: ABG ABG pH 7.30 pH Units (7.32-7.45) L 04/19/18 17:29 ABG pCO2 39 mmHg (35-45) 04/19/18 17:29 ABG pO2 93 mmHg (85-104) 04/19/18 17:29 ABG O2 Saturation 96 % (95-98) 04/19/18 17:29 PT/INR, D-dimer PT 12.8 Seconds (9.4-12.1) H 04/19/18 16:45 - Impressions Impressions Cervical Spine CT 04/19/18 16:36 IMPRESSION: No acute abnormality of the cervical spine. D/ / 04/19/2018 17:45:49 Angelito Solano MD / margi Interpreting Provider: Angelito Solano MD Chest X-Ray 04/19/18 16:36 IMPRESSION: 1. Question left suprahilar opacity which may reflect mild pneumonia in the proper clinical setting 2. Cardiomegaly and tortuous thoracic aorta. Consider further assessment with CTA exam as clinically indicated. D/ / Fab Mckeon MD / Fab Mckeon MD Interpreting Provider: Fab Mckeon MD Head CT 04/19/18 16:36 IMPRESSION: 1. No acute intracranial abnormality. 2. Diffuse cerebral atrophy with chronic small vessel ischemic disease. 3. Remote left cerebellar hemisphere infarct. D/ / Mando Carranza MD / Mando Carranza MD Interpreting Provider: Mando Carranza MD Chest CTA 04/19/18 16:38 IMPRESSION: Type A thoracic aortic dissection with extension to the aortic root with moderate size hemopericardium. A small defect is seen along the ascending aortic dissection flap (see annotated images). The dissection flap extends to the aortic arch where it becomes completely thrombosed. Aortic arch branches are patent with possible tiny dissection flap within the left subclavian artery. Nikolai coronary arteries and bypass grafts appear to arise from the true lumen. Aneurysmal ascending aorta also severely compresses the superior vena cava and right branch main pulmonary artery. Ectatic thoracoabdominal aorta with patent visceral branches. Extrinsic compression of the celiac artery may indicate underlying superior mesenteric artery compression. Critical results were called by Dr. Ubaldo Rawls to Praveen Parks on 04/19/2018 at 5:48 p.m.. D/ / 04/19/2018 18:05:42 Ubaldo Rawls / margi Interpreting Provider: Ubaldo Rawls Pelvis X-Ray 04/19/18 16:38 IMPRESSION: Acute osseous abnormality the bony pelvis or left hip. Intact partially imaged right hip prosthesis. D/ / Ubaldo Rawls / Ubaldo Rawls Interpreting Provider: Ubaldo Rawls Consult Discharge Plan - Plan Referrals: Leny Vivar PATTERN CUTTER [Primary Care Provider] - Palliative Quality Palliative Quality: Screen for Code Status: Yes, Screen for Goals of Care: Yes, Screen for Pain: Yes, If Pain Regimen Started, Initiate Bowel Regimen: Yes, Screen for Nausea/Vomitting: Yes Code Status: 04/19/18 22:50 DNR [Resuscitation Status: Active] [RES] Routine Comment: Pts. Code Status changed per her daughter (POA) Resuscitation Status: DNR-Comfort Care
--- NOTE | 2018-04-20 14:26 | Discharge Summary ---
Orders not resulted at time of discharge: Pending orders 04/19/18 16:36 Urinalysis Reflex Cult & Micro [URIN] Routine 04/19/18 16:38 CTA Abdomen/Pelvis [CT angio abdomen pelvis] [CT] Stat Date of Encounter: 04/20/18 Time of Encounter: 13:00 - Discharge Diagnosis (1) Dissection of aorta, thoracic Priority: Primary Status: Acute (2) Altered mental state Priority: Primary Status: Acute Qualifiers: Altered mental status type: disorientation Qualified Code(s): R41.0 - Disorientation, unspecified (3) Hypotension Priority: Primary Status: Acute Qualifiers: Hypotension type: unspecified hypotension type Qualified Code(s): I95.9 - Hypotension, unspecified (4) Cyanosis Priority: Primary Status: Acute (5) Hypothermia Priority: Primary Status: Acute Qualifiers: Encounter type: initial encounter Qualified Code(s): T68.XXXA - Hypothermia, initial encounter Hospital course: Ms. Maya is a 87 year old female present to ER for AMS and was found on floor. Further test in ER shows thoracic aortic artery dissection. Pt and family refused the options of surgery and would like to pursue comfort care only. Palliative care consult saw pt and will D/C pt to GIP unit today for comfort care only. I saw and examined pt today. Pt is AAO x 3, again express no surgery and would like comfort care only, family members are at bedside. BP is at lower side. Appreciate palliative care consult, will d/c pt to inpatient hospice care after palliative care discussed with pt and family. - Time Spent with Patient Total time spent providing and/or coordinating discharge services: 25 min Less than 30 minutes - Discharge Medications Home Medications: Aspirin [Adult Aspirin] 81 mg PO DAILY 04/20/18 [History] Clopidogrel [Plavix] 75 mg PO DAILY 04/20/18 [History] Levothyroxine [Synthroid] 75 mcg PO DAILY 04/20/18 [History] Potassium Chloride [Klor-Con 10] 10 meq PO DAILY 04/20/18 [History] Rosuvastatin [Crestor] 40 mg PO HS 04/20/18 [History] Allergies/Adverse Reactions: Allergy/AdvReac Type Severity Reaction Status Date / Time No Known Allergies Allergy Verified 05/10/16 16:22 Date of admission: 04/19/18 21:23 Primary care physician: Leny Vivar CNP Consults: 04/19/18 19:33 Consult to Palliative Care [CONS] Stat Comment: Consulting Provider: Palliative Care Rebekah Reason for Consult: end of life care Call Completed: No Discharging clinician: Kyung Harper Anticipated date of discharge: 04/20/18 - Constitutional Vitals: Temp Pulse Resp BP Pulse Ox 98.4 F 60 16 80/51 93 04/20/18 12:04 04/20/18 12:04 04/19/18 18:15 04/20/18 12:04 04/19/18 18:15 General appearance: Present: A&O X 3, no acute distress, answers questions appropriately Exam: in NAD - Head Head exam: Present: atraumatic, normocephalic - Eye Eye exam: Present: PERRL, conjuntiva pink, sclera anicteric Pupils: Present: PERRL - Neck Neck exam general surgery: Present: supple, trachea midline. Absent: lymphadenopathy - Respiratory Respiratory exam: Present: CTAB. Absent: accessory muscle use, rales, rhonchi, wheezes - Cardiovascular Cardiovascular exam: Present: distant heart sounds (Skin is cold), RRR, +S1, +S2. Absent: diastolic murmur, gallop, rubs, systolic murmur - GI/Abdominal GI/Abdominal exam: Present: normal bowel sounds, soft, no peritoneal signs. Absent: distended, tenderness - Extremities Exam Extremities exam: Present: warm, radial pulses palpable and symmetrical. Absent: calf tenderness, cyanotic, pedal edema - Neurological Exam Neurological exam: Present: CN II-XII intact, oriented X3, no focal deficits. Absent: pronater drift, facial droop, speech deficit - Skin Skin exam: Present: dry, intact - Patient Status Disposition: Hospice - Medical Facility Condition: Critical Overall status at discharge: patient is not back to baseline - Discharge Instructions Follow Up With: Leny Vivar CNP [Primary Care Provider] - - Diet and Activity Diet: regular diet
--- NOTE | 2018-04-23 21:29 | Electrocardiograph Report ---
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
== END 2018-04-20 15:12 | disposition hospice, inpatient (51) | DRG 300 ==
LOC: EMEROOARM 16:29 → 2ANU 16:29
PROVIDERS: ADMIT Internal Medicine; ATTEND Internal Medicine

== ENCOUNTER 2018-04-20 11:53 | Inpatient (IN) ==
[2018-04-20] MEDS ORDERED: Albuterol 2.5 MG/3 ML NEBULIZER IH PRN (13:13)
[2018-04-20] MEDS ORDERED: Ondansetron ODT 4 MG TAB.RAPDIS SL PRN (13:13)
[2018-04-20] MEDS ORDERED: Atropine Sulfate 1% 40 DROP/2 ML BOTTLE SL PRN (13:13)
[2018-04-20] MEDS ORDERED: *HR* Promethazine 25 MG/ML VIAL IVP PRN (13:17)
[2018-04-20] MEDS ORDERED: OXYCODONE Oral CONC 10 MG/0.5 ML ORAL.SYG SL PRN (13:18)
[2018-04-20] MEDS: *HR* FentaNYL PATCH 12 MCG PATCH TD SCH (16:39)
[2018-04-21] MEDS: *HR* Morphine 2 MG/ML SYRINGE IVP PRN ×2 (05:13→23:18)
--- NOTE | 2018-04-21 13:09 | Pallative History & Physical ---
<Silvia Davis - Last Filed: 04/21/18 15:47> Date of Encounter: 04/21/18 Time of Encounter: 11:00 Assessment and Plan (1) Dissection of aorta, thoracic Current visit: Yes Status: Acute Recently diagnosed with aortic dissection and the patient and family has decided not do any surgical intervention. Continue to provided pain management. (2) Nausea Current visit: Yes Status: Acute Today she did not have nausea but lack of appetite. She does have zofran and phenergan on board if the nausea returns. (3) Constipation Current visit: Yes Status: Acute Constipation secondary to opiate and poor oral intake. Does not have abdominal pain or distention. She is comfortable and stated her lack of diet is likely the cause of her constipation. She is currently on Dulcolax. Qualifiers: Constipation type: other constipation type Qualified Code(s): K59.09 - Other constipation (4) Pain Current visit: Yes Status: Acute She had chest pain at presentation. Today she is comfortable and not complaining of any pain. For pain management she is on morphine, as well as oxycodone for breakthrough pain. Internal Medicine - H&P: HPI Chief complaint: End of life care Admitted From: Hospital to Hospital Transfer History of present illness: Ms. 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 The patient and family refused surgical interventions and would like to pursue comfort care only. She is recently discharged from the hospitalist team. On 04/19/2018 she was found on the floor. She was found to be hypoxic, cyanotic and not responsive. When EMS arrived she was hypothermic and her temperature was noted to be [address] of the head in the ER did not show any acute abnormalities but showed left cerebellar hemisphere infarct. CT of the chest showed a thoracic aortic dissection with extension to the aortic root and with moderate size hemopericardium. 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 The findings were discussed with the patient and the family they understood the severity of it but decided against surgical intervention. She is currently admitted to the palliative care service. This morning she was comfortable in bed. She did not complain of pain anywhere. She stated she has underlying shortness of breath but it has not worsened since her admission. She also denied chest pain, fever, chills, nausea, emesis. She did elicit that her appetite has been poor but is consuming small amount of food as tolerated. Past Med Surg Social Fam HX - Past Medical History Medical history: aortic aneurysm, CHF, hyperlipidemia, hypertension, myocardial infarction, thyroid disease, other Additional medical history: broken right hip and lower back Psychiatric history: no psych history - Past Surgical History Surgical History: orthopedic, other - Social History Smoking Status: Never smoker Smokeless Tobacco Status: No Alcohol use: none Drug use: none Internal Medicine - H&P: Meds Aspirin [Adult Aspirin] 81 mg PO DAILY 04/20/18 [History] Clopidogrel [Plavix] 75 mg PO DAILY 04/20/18 [History] Levothyroxine [Synthroid] 75 mcg PO DAILY 04/20/18 [History] Potassium Chloride [Klor-Con 10] 10 meq PO DAILY 04/20/18 [History] Rosuvastatin [Crestor] 40 mg PO HS 04/20/18 [History] Allergy/AdvReac Type Severity Reaction Status Date / Time No Known Allergies Allergy Verified 05/10/16 16:22 - Constitutional Constitutional ROS PAL: decreased appetite, no chills, no fever(s) - EENT Ears, nose, mouth, throat: no dysphagia, no nasal congestion, no sore throat - Cardiovascular Cardiovascular ROS: no chest pain, no leg edema, no palpitations - Respiratory Respiratory: dyspnea (Baseline, comfortable on room air), no cough - Gastrointestinal Gastrointestinal: no abdominal pain, no diarrhea, no hematemesis, no nausea, no vomiting - Musculoskeletal Musculoskeletal ROS IM: no muscle weakness, no neck pain - Integumentary ROS Integumentary: no sores - Psychiatric Psychiatric general PM: change in appetite (Decrease in appetite), no behavioral changes Palliative Care-Exam - Constitutional Vitals: Temp Pulse Resp BP Pulse Ox 98.6 F 65 16 100/70 92 04/21/18 10:52 04/21/18 10:52 04/21/18 10:52 04/21/18 10:52 04/21/18 10:52 General appearance: Present: average body habitus, cooperative, no acute distress - Head Head Exam: Present: atraumatic, normocephalic - Expanded Head Exam Head exam expanded IM: Absent: abrasion - Eye Eye exam: Present: EOMI, normal appearance, sclera anicteric. Absent: conjunctival injection - ENT ENT exam: Present: normal external ear exam - Expanded ENT Exam Mouth Exam: Present: moist - Neck Neck exam: Absent: tenderness - Respiratory Respiratory exam: Present: CTAB. Absent: rhonchi, stridor, wheezes - Cardiovascular Cardiovascular exam: Present: RRR, systolic murmur (2/6 systolic ejection murmur) - GI/Abdominal Exam GI/Abdominal exam: Present: diminished bowel sounds, soft. Absent: distended, firm, tenderness - Extremities Exam Extremities exam: Present: full ROM, normal inspection. Absent: calf tenderness, pedal edema, tenderness - Back Exam Back exam: Absent: muscle spasm, tenderness - Neurological Exam Neurological exam: Present: alert, oriented X3 - Psychiatric Psychiatric exam: Present: normal affect, normal mood - Skin Skin exam: Present: dry, intact, warm. Absent: erythema Palliative Quality Palliative Quality: Screen for Code Status: Yes, Screen for Goals of Care: Yes, Screen for Pain: Yes, If Pain Regimen Started, Initiate Bowel Regimen: Yes, Screen for Nausea/Vomitting: Yes Code Status: 04/20/18 13:13 Resuscitation Status: Active [RES] Routine Comment: Resuscitation Status: DNR-Comfort Care <Victoria Ramirez - Last Filed: 04/22/18 09:37> Internal Medicine - H&P: HPI Plans for Post Hospital Care: Hospice - Home History of present illness: Ms. Maya is a 87 year old female Palliative Care-Exam - Constitutional Vitals: Temp Pulse Resp BP Pulse Ox 98.8 F 69 18 92/67 93 04/22/18 06:27 04/22/18 06:27 04/22/18 06:27 04/22/18 06:27 04/22/18 06:27 Palliative Quality Code Status: 04/20/18 13:13 Resuscitation Status: Active [RES] Routine Comment: Resuscitation Status: DNR-Comfort Care - Attending Attestation I performed a history and physical examination of the patient and discussed his management with the resident. I reviewed the residents note and agree with the documented findings and plan of care, except as follow: Pt was admitted to hospice [facility] for management of pain. Pain medication were optimizzed and family educated. If pt remains stable, plan for discharge home with [facility] tomorrow. Plan discussed with pt's daughters present at the bedside, they are agreeable. [facility] was updated.
[2018-04-21] MEDS: *HR* LORazepam Oral Conc 2 MG/ML PO PRN (22:53)
--- NOTE | 2018-04-22 12:05 | Palliative Progress Note ---
Date of Encounter: 04/22/18 Time of Encounter: 11:15 - Assessment and plan (1) Copious oral secretions Current Visit: Yes Status: Acute Assessment and plan: Patient noted to have increased audible rattling sound due to increased oral secretions. Add Scopalamine patch. Notified Primary RN of need for continued administration of Atropine drops. (2) Dissection of aorta, thoracic Current Visit: No Status: Acute (3) Chest pain Current Visit: No Status: Acute Assessment and plan: Patient had episode of Chest pain overnight, required 2 doses of IV Morphine. Continue Morphine PRN. Patient also has Oxycodone. Educated family of benefit and longevity of pain control with Oxycodone. Qualifiers: Chest pain type: chest pain due to myocardial ischemia Ischemic chest pain type: unspecified angina pectoris type Qualified Code(s): I25.9 - Chronic ischemic heart disease, unspecified (4) Anxiety Current Visit: No Status: Acute Assessment and plan: Patient denies anxiety at this time. Has received 1 dose of Ativan in the last 24 hours; continue PRN. (5) Goals of care, counseling/discussion Current Visit: No Status: Acute Assessment and plan: Conducted goals of care discussion with family. Family desires patient to remain at [facility] at this time while working to get oral secretions and "gurgling sound" under control. Fearful of how patient's grandson would handle her being home in current condition. Notified Yajaira at [facility] of continued need for GIP at this time. - Time Spent With Patient Total time spent is greater than 50% in coordination of care (as documented) at patient's floor/unit and/or counseling patient: 25 - 35 minutes - Subjective Interval history: Patient resting in bed with eyes closed upon arrival for assessment. Arouses with gentle tactile stimulation. Patient becomes alert and oriented. Denies pain, anxiety, shortness of breath, nausea and vomiting. Patient has increased audible rattle/oral secretions present during assessment. Patient's family reports patient had extreme chest pain over night, required Morphine IV times 2 doses, and finally rested after that point. Patients color to face is now very pale and bruising is more prominent to face. - Constitutional General appearance: Present: cooperative, no acute distress - Head Head exam: Present: atraumatic, normal inspection - Eye Eye exam: Present: normal appearance. Absent: periorbital swelling, periorbital tenderness - ENT ENT exam: Present: mucous membranes dry, normal external ear exam - Neck Neck exam: Present: full ROM, normal inspection - Respiratory Respiratory exam: Present: wheezes. Absent: accessory muscle use, respiratory distress - Cardiovascular Cardiovascular exam: Present: irregular rhythm - Expanded Cardiovascular Exam Peripheral pulses: 1+: Radial (L), Radial (R), Posterior Tibialis (L), Posterior Tibialis (R), Dorsalis Pedis (L) PM, Dorsalis Pedis (R) PM - GI/Abdominal GI/Abdominal exam: Present: diminished bowel sounds, soft. Absent: tenderness - Rectal Rectal exam: Present: deferred - Additional comments: Catheter in place. - Extremities Exam Extremities exam: Present: normal capillary refill, normal inspection. Absent: pedal edema - Back Exam Back exam: Present: normal inspection - Neurological Exam Neurological exam: Present: alert, oriented X3, strengths equal and symetr throughout. Absent: altered - Psychiatric Psychiatric exam: Present: flat affect - Skin Skin exam: Present: dry, intact, pallor, warm Palliative Quality Palliative Quality: Screen for Code Status: Yes, Screen for Goals of Care: Yes, Screen for Pain: Yes, If Pain Regimen Started, Initiate Bowel Regimen: Yes, Screen for Nausea/Vomitting: Yes Code Status: 04/20/18 13:13 Resuscitation Status: Active [RES] Routine Comment: Resuscitation Status: DNR-Comfort Care Consult Discharge Plan - Plan Referrals: NONE,PCP [Primary Care Provider] -
[2018-04-22] MEDS: Scopolamine Patch 1.5 MG PATCH.TD72 TD SCH (12:54)
--- NOTE | 2018-04-23 11:41 | Palliative Progress Note ---
Date of Encounter: 04/23/18 Time of Encounter: 10:15 - Assessment and plan (1) Abdominal pain Current Visit: No Status: Acute Assessment and plan: Patient denies pain. Reports tenderness to joints. Repositioned in the bed for comfort. HOB up. Tolerating Fentnyl patch at 12 mcg. NO additional BTP meds taken. Qualifiers: Abdominal location: generalized Qualified Code(s): R10.84 - Generalized abdominal pain (2) Anxiety Current Visit: No Status: Acute Assessment and plan: None at present. PRN lorazepam if needed. (3) Goals of care, counseling/discussion Current Visit: No Status: Acute Assessment and plan: Conducted 35 minute long meeting with patients children. Son Bunny, daughters Maliha and Damaris. Discussed patient POC and answered questions related to transition home. Children have some issues with collaboration. I explained POC and explained that assessment today reveals that secretions have improved and patient is stable with her vitals signs. Family has plan in place for providing care at home and agrees that if patient remains stable with transition home Wednesday. Family desires to ride in ambulance for home transport. I discussed with hospice and they will check on the status of this. I encouraged family to set aside differences for their mother and share in her care. They verbalized understanding and agree to the plan. I instructed them to write down questions and I would clarify them as needed. Family support provided. (4) Copious oral secretions Current Visit: No Status: Acute Assessment and plan: Scopolmine patch in place. Patient tolerating ice chips. (5) Dissection of aorta, thoracic Current Visit: Yes Status: Acute Assessment and plan: Patient stable. B/P 115/76. - Time Spent With Patient Total time spent is greater than 50% in coordination of care (as documented) at patient's floor/unit and/or counseling patient: Greater than 35 minutes (Family meeting and patient assessment) - Subjective Interval history: Patient awake. Reports feeling much better today. Secretions minimal. Tolerating po intake. States mouth is tender. Tolerating ice chips. Family at bedside. - Constitutional General appearance: Present: no acute distress - Head Head exam: Present: atraumatic, normal inspection Additional comments: ecchymotic area to lateral left lip. - Eye Eye exam: Present: PERRL Pupils: Present: PERRL - ENT ENT exam: Present: mucous membranes moist - Expanded ENT Exam Mouth exam: Present: dry mucosa (Wears bilateral hearing aids) - Neck Neck exam: Present: full ROM - Respiratory Respiratory exam: Present: CTAB - Cardiovascular Cardiovascular exam: Present: RRR, +S1, +S2 - GI/Abdominal GI/Abdominal exam: Present: normal bowel sounds, soft - Neurological Exam Neurological exam: Present: alert, oriented X3 - Psychiatric Psychiatric exam: Present: normal affect - Skin Skin exam: Present: pallor, warm Palliative Quality Palliative Quality: Screen for Code Status: Yes, Screen for Goals of Care: Yes, Screen for Pain: Yes, If Pain Regimen Started, Initiate Bowel Regimen: Yes, Screen for Nausea/Vomitting: Yes Code Status: 04/20/18 13:13 Resuscitation Status: Active [RES] Routine Comment: Resuscitation Status: DNR-Comfort Care Consult Discharge Plan - Plan Referrals: NONE,PCP [Primary Care Provider] -
[2018-04-23] MEDS: *HR* FentaNYL PATCH 12 MCG PATCH TD SCH (11:54)
[2018-04-23] MEDS ORDERED: Acetaminophen 325 MG TABLET PO PRN (12:28)
[2018-04-23] MEDS: *HR* LORazepam Oral Conc 2 MG/ML PO PRN (17:50)
--- NOTE | 2018-04-24 11:10 | Palliative Progress Note ---
Date of Encounter: 04/24/18 Time of Encounter: 10:30 - Assessment and plan (1) Dry eyes, bilateral Current Visit: Yes Status: Acute Assessment and plan: Patient with dry eyes and crust to eyes. Will add saline gtts for comfort. (2) Abdominal pain Current Visit: No Status: Acute Assessment and plan: Patient denies pain. Reports tenderness to joints. Repositioned in the bed for comfort. HOB up. Tolerating Fentanyl patch at 12 mcg. NO additional BTP meds taken. Qualifiers: Abdominal location: generalized Qualified Code(s): R10.84 - Generalized abdominal pain (3) Anxiety Current Visit: No Status: Acute Assessment and plan: None at present. PRN lorazepam if needed. Had 1mg dose yesterday evening. Patient drowsy. (4) Goals of care, counseling/discussion Current Visit: No Status: Acute Assessment and plan: Conducted 20 minute long meeting with patients children. Daughters Maliha and Damaris. Discussed patient POC and answered questions related to transition home. Children still have some issues with collaboration. I explained POC and explained that assessment today reveals she has no secretions and patient is stable with her vitals signs. Patient would like to go home is possible. Family has plan in place for providing care at home and agrees that if patient remains stable with transition home Wednesday. Family desires to ride in ambulance for home transport. I discussed with hospice and they will check on the status of this. I encouraged family to set aside differences for their mother and share in her care. They verbalized understanding and agree to the plan. I instructed them to write down questions and I would clarify them as needed. Family support provide d. (5) Copious oral secretions Current Visit: No Status: Acute (6) Dissection of aorta, thoracic Current Visit: Yes Status: Acute - Time Spent With Patient Total time spent is greater than 50% in coordination of care (as documented) at patient's floor/unit and/or counseling patient: - Subjective Interval history: Patient sleepy but able to awaken to name. Patient received ativan last nigh and is feeling groggy. No noted secretions. Tolerating minimal po intake of ice and ice cream. States mouth is tender. Tolerating ice chips. Family at bedside. - Head Head exam: Present: atraumatic, normal inspection - Eye Eye exam: Present: PERRL Additional comments: Bilateral dry crust to eyes. Eye care given. - ENT ENT exam: Present: mucous membranes moist - Neck Neck exam: Present: full ROM - Respiratory Respiratory exam: Present: CTAB - Cardiovascular Cardiovascular exam: Present: RRR, +S1, +S2 - GI/Abdominal GI/Abdominal exam: Present: normal bowel sounds, soft - Extremities Exam Extremities exam: Present: full ROM - Neurological Exam Neurological exam: Present: alert (alert to name being called) - Psychiatric Psychiatric exam: Present: normal affect - Skin Skin exam: Present: pallor, warm Palliative Quality Palliative Quality: Screen for Code Status: Yes, Screen for Goals of Care: Yes, Screen for Pain: Yes, If Pain Regimen Started, Initiate Bowel Regimen: Yes, Screen for Nausea/Vomitting: Yes Code Status: 04/20/18 13:13 Resuscitation Status: Active [RES] Routine Comment: Resuscitation Status: DNR-Comfort Care Consult Discharge Plan - Plan Referrals: NONE,PCP [Primary Care Provider] -
[2018-04-24] MEDS ORDERED: Artificial Tears SOLN 15 ML BOTTLE BOTH EYES SCH (13:00)
[2018-04-24] MEDS: Artificial Tears SOLN 15 ML BOTTLE BOTH EYES SCH (20:52)
[2018-04-25] MEDS: *HR* LORazepam Oral Conc 2 MG/ML PO PRN (04:20)
[2018-04-25] MEDS: Scopolamine Patch 1.5 MG PATCH.TD72 TD SCH (11:49)
--- NOTE | 2018-04-25 14:32 | Palliative Progress Note ---
Date of Encounter: 04/25/18 Time of Encounter: 14:30 - Assessment and plan (1) Anxiety Current Visit: No Status: Acute Assessment and plan: Pt is drowsy, but when awake looks restless. As per daughter, overnight she was given Tylenol and benadryl at first, but with no effect. then pt received Ativan. Family believes that lorazepam makes pt too drowsy and altered. Avoid Benadryl and Lorazepam. If pt agitated, will recommend a trial of Haldol 1 mg prn first, followed by oxycodone SL 5mg prn. (2) Goals of care, counseling/discussion Current Visit: No Status: Acute Assessment and plan: 10:00: 20 minute long meeting with patient's daughter Maliha. Discussed patient POC and answered questions related to transition home. Maliha did not feel than her and her siblings were on board with pt returning home, she was very hesitant and nervous about pt being so drowsy today, the ambulance ride, and the patient's care at home. I explained POC and explained that assessment today reveals that secretions have improved and patient is stable with her vitals signs. Family desires to ride in ambulance for home transport and it was discussed with hospice and they will check on the status of this. Maliha to convene with her siblings to finalize the plan. 14:00: Met again with Maliha, she states that pt had told her that she would be ok to stay here if that was more convenient for her. She is mostly worried about the fact that pt's room is not ready and will need to be cleaned and organized. She also pointed out that she will be the primary medical care evaluation specialist as her other siblings are all working. She seemed very anxious about pt being moved while she was so drowsy. I explained that pt is likely to become drowsier with time, explained what to expect during the dying process. Plan is for discharge home tomorrow if pt remains stable. Maliha agreeable. (3) Copious oral secretions Current Visit: No Status: Acute Assessment and plan: secretions are well controlled with scopolamine patch. (4) Abdominal pain Current Visit: No Status: Acute Assessment and plan: Patient denies pain today. Fentanyl patch 12mcg in place, pt did not require any prn medications. Qualifiers: Abdominal location: generalized Qualified Code(s): R10.84 - Generalized abdominal pain (5) Dissection of aorta, thoracic Current Visit: Yes Status: Acute - Time Spent With Patient Total time spent is greater than 50% face to face with pt and family, in coordination of care (as documented) at patient's floor/unit and/or counseling patient: Greater than 35 minutes - Subjective Interval history: Pt is drowsy, but arousable, she has slurred speech and does not respond to commands appropriately. Daughter Fang at the bedside, she believes that pt's drowsiness is due to lorazepam that pt received overnight for anxiety. - Head Head exam: Present: atraumatic Additional comments: Ecchymotic area to the left lateral lip - ENT ENT exam: Present: mucous membranes moist - Respiratory Respiratory exam: Present: CTAB - Cardiovascular Cardiovascular exam: Present: RRR, +S1, +S2 - GI/Abdominal GI/Abdominal exam: Present: normal bowel sounds. Absent: distended, tenderness - Additional comments: dickson in place, draining concentrated urine. - Neurological Exam Additional comments: drowsy, oriente to place and person not consistently. Palliative Quality Palliative Quality: Screen for Code Status: Yes, Screen for Goals of Care: Yes, Screen for Pain: Yes, If Pain Regimen Started, Initiate Bowel Regimen: Yes, Screen for Nausea/Vomitting: Yes Code Status: 04/20/18 13:13 Resuscitation Status: Active [RES] Routine Comment: Resuscitation Status: DNR-Comfort Care Consult Discharge Plan - Plan Referrals: NONE,PCP [Primary Care Provider] -
[2018-04-25] MEDS: OXYCODONE Oral CONC 10 MG/0.5 ML ORAL.SYG SL PRN (15:04)
[2018-04-25] MEDS: Artificial Tears SOLN 15 ML BOTTLE BOTH EYES SCH (20:36)
[2018-04-26] MEDS: OXYCODONE Oral CONC 10 MG/0.5 ML ORAL.SYG SL PRN ×2 (09:38→16:32)
[2018-04-26] MEDS: *HR* Morphine 2 MG/ML SYRINGE IVP PRN (09:48)
[2018-04-26 11:22] VITALS: BP 106/72
--- NOTE | 2018-04-26 11:27 | Discharge Summary ---
Date of Encounter: 04/26/18 Time of Encounter: 10:00 - Discharge Diagnosis (1) Hospice care Priority: Primary Status: Acute (2) Goals of care, counseling/discussion Priority: Secondary Status: Acute Comments: pt is agitated and confused. She does not open her eyes, remains verbal but unable to carry a conversation. Able to make needs known from times to times. Daughter Maliha at the bedside, feels that pt has worsened since yesterday, and displaying more anxiety about pt returning home. Discussed that per pt's wishes and previously discussed plan, patient remains clinically stable and able to be discharged home. Reiterated the role and support of Hospice team. Family aware that pt is very frail and can at anytime, including during transport. (3) Anxiety Priority: Primary Status: Acute Comments: Pt had paradoxical reaction to Ativan. She responds well to oxycodone prn, Haldol prn. (4) Copious oral secretions Priority: Primary Status: Acute Comments: on Scopolamine patch, controlled (5) Dissection of aorta, thoracic Priority: Primary Status: Acute - Hospital Course Hospital course: Ms. Maya is a 87 year old female that was admitted for chest pain and was diagnosed with aortic dissection. The patient and family refused surgical interventions and would like to pursue comfort care only. Patient was admitted to hospice G[facility] for pain control as a transition to home. Patient at first was alert and oriented x3, now is mostly drowsy and agitated. Pt to be discharged home as per patient's wishes, family aware that pt may at anytime, including during transport. - Time Spent with Patient Total time spent providing and/or coordinating discharge services: Greater than 30 minutes - Discharge Medications Prescriptions: Ondansetron ODT [Zofran ODT] 4 mg SL Q4HR PRN 4 Days #25 tab.rapdis PRN Reason: Nausea Dextran 70/Hypromellose [Artificial Tears Eye Drops] 15 ml OP HS #1 bottle FentaNYL PATCH [Duragesic] 12 mcg TD Q72H 3 Days #1 patch.td72 Haloperidol Oral Conc [Haldol] 1 mg PO Q6H PRN 3 Days mls PRN Reason: Agitation OXYCODONE Oral CONC [Oxycodone Oral Conc] 5 mg PO Q4H PRN 3 Days oral.syg PRN Reason: Pain Scopolamine Patch [Transderm-Scop] 1 each TD Q72H 3 Days patch.td72 Home Medications: Dextran 70/Hypromellose [Artificial Tears Eye Drops] 15 ml OP HS #1 bottle 04/26/18 [Rx] FentaNYL PATCH [Duragesic] 12 mcg TD Q72H 3 Days #1 patch.td72 04/26/18 [Rx] Haloperidol Oral Conc [Haldol] 1 mg PO Q6H PRN 3 Days mls 04/26/18 [Rx] OXYCODONE Oral CONC [Oxycodone Oral Conc] 5 mg PO Q4H PRN 3 Days oral.syg 04/26/18 [Rx] Ondansetron ODT [Zofran ODT] 4 mg SL Q4HR PRN 4 Days #25 tab.rapdis 04/26/18 [Rx] Scopolamine Patch [Transderm-Scop] 1 each TD Q72H 3 Days patch.td72 04/26/18 [Rx] Allergies/Adverse Reactions: Allergy/AdvReac Type Severity Reaction Status Date / Time No Known Allergies Allergy Verified 05/10/16 16:22 Internal Medicine - DS: Prov Date of admission: 04/20/18 15:18 Primary care physician: PCP NONE Admitting clinician: Victoria Ramirez Attending physician on admission: Victoria Ramirez Consults: 04/20/18 13:13 Consult to Palliative Care [CONS] Routine Comment: Consulting Provider: [facility] [place] Reason for Consult: GIP Call Completed: No 04/25/18 11:53 Consult to Pastoral Services [CONS] Routine Comment: Paliative 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 technology 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 Attending physician on discharge: Victoria Ramirez Discharging clinician: Victoria Ramirez Anticipated date of discharge: 04/26/18 Internal Medicine - DS: Exam - Constitutional Vitals: Vital Signs Temp Pulse Resp BP Pulse Ox 04/26/18 11:21 97.8 F 83 106/72 90 04/25/18 19:09 97.9 F 88 14 87/67 90 Intake and Output 04/25/18 04/26/18 04/26/18 23:59 07:59 15:59 Intake Total 0 / 0 Output Total 500 / 500 200 / 200 Balance -500 / -500 -200 / -200 Intake: Oral 0 / 0 Output: Urine 500 / 500 Catheter 200 / 200 Urethral (Dickson) 200 / 200 Other: Weight 61 kg Additional comments: sick looking, agitated at times, in no acute distress - Head Head exam: Present: normal inspection, normocephalic - Expanded Head Exam Head exam: Present: contusion (left lower lip) - ENT ENT exam: Present: mucous membranes moist - Neck Neck exam: Present: normal inspection - Respiratory Respiratory exam: Present: CTAB. Absent: respiratory distress - Cardiovascular Cardiovascular exam: Present: RRR, +S1, +S2 - GI/Abdominal GI/Abdominal exam: Present: normal bowel sounds, soft. Absent: distended - Additional comments: dickson in place, draining concentrated urine - Extremities Exam Additional comments: moves all extremities, no edema, peripheral pulses present - Neurological Exam Additional comments: pt is agitated and confused. She does not open her eyes, remains verbal but unable to carry a conversation. - Skin Skin exam: Present: intact - Patient Status Disposition: Hospice - Home Condition: Critical Functional capacity at discharge: bed bound Overall status at discharge: patient is not back to baseline - Discharge Instructions Instructions: Peripheral Vascular Disorders (DC) - Diet and Activity Activity: other (bed rest) Diet: other (comfort feeds when pt alert)
--- NOTE | 2018-04-26 13:31 | Physician Discharge Referral ---
Home Health/Hosp Referral Info Transfer to: Hospice Provider in Charge Post Discharge: [facility] Care: Patient with hospice diagnosis of Aortic dissection, transitioning from [facility] to home hospice care - Diagnosis (1) Hospice care Status: Acute (2) Goals of care, counseling/discussion Status: Acute (3) Anxiety Status: Acute (4) Copious oral secretions Status: Acute (5) Dissection of aorta, thoracic Status: Acute - Respiratory Orders Oxygen / L per min (2L/min for comfort) Smoking Cessation: Smoking cessation has been advised. For more information, call the [employer] Quit Line at 9-245-KOFW-NOW. - Diet/Nutrition Diet/Nutrition: List: comfort feeds, only on pt's request when she is alert enough. - Activity Activity Orders: Bedrest - Services Needed Following services are medically necessary services: Home Health Aide, Med Social Work Other Treatments: Pain and symptoms management - Transfer Medications Prescriptions: Ondansetron ODT [Zofran ODT] 4 mg SL Q4HR PRN 4 Days #25 tab.rapdis PRN Reason: Nausea Dextran 70/Hypromellose [Artificial Tears Eye Drops] 15 ml OP HS #1 bottle FentaNYL PATCH [Duragesic] 12 mcg TD Q72H 3 Days #1 patch.td72 Haloperidol Oral Conc [Haldol] 1 mg PO Q6H PRN 3 Days mls PRN Reason: Agitation OXYCODONE Oral CONC [Oxycodone Oral Conc] 5 mg PO Q4H PRN 3 Days oral.syg PRN Reason: Pain Scopolamine Patch [Transderm-Scop] 1 each TD Q72H 3 Days patch.td72 Home Medications: Dextran 70/Hypromellose [Artificial Tears Eye Drops] 15 ml OP HS #1 bottle 04/26/18 [Rx] FentaNYL PATCH [Duragesic] 12 mcg TD Q72H 3 Days #1 patch.td72 04/26/18 [Rx] Haloperidol Oral Conc [Haldol] 1 mg PO Q6H PRN 3 Days mls 04/26/18 [Rx] OXYCODONE Oral CONC [Oxycodone Oral Conc] 5 mg PO Q4H PRN 3 Days oral.syg 04/26/18 [Rx] Ondansetron ODT [Zofran ODT] 4 mg SL Q4HR PRN 4 Days #25 tab.rapdis 04/26/18 [Rx] Scopolamine Patch [Transderm-Scop] 1 each TD Q72H 3 Days patch.td72 04/26/18 [Rx] Allergies/Adverse Reactions: Allergy/AdvReac Type Severity Reaction Status Date / Time No Known Allergies Allergy Verified 05/10/16 16:22 Certification: Further, I certify that my clinical findings support that this patient is homebound (i.e. absences from home require considerable and taxing effort and are for medical reasons or christian services or infrequently or short duration when for other reasons) because: of terminal diagnosis of Thoracic aortic dissection, pain and functional decline. Homebound Reason: Severity of cardiac or pulmonary status limits activity tolerance Attestation: My signature below is to certify that this patient is under my care and that I, or nurse practitioner, or a physician's assistant professor of criminal justice working with me, has a [id number] encounter with this patient.
[2018-04-26] MEDS: *HR* FentaNYL PATCH 12 MCG PATCH TD SCH (16:34)
== END 2018-04-26 17:19 | disposition hospice, home (50) | DRG 299 ==
LOC: 2ANU 15:18
PROVIDERS: ADMIT Internal Medicine Hospice and Palliative Medicine; ATTEND Internal Medicine Hospice and Palliative Medicine